=== PATIENT | female | born 1960 | race Caucasian/White ===

== ENCOUNTER → 2018-06-13 | Outpatient (CLI) | payer OTHER | LOC: M.RAD 07:20 | DX: Z12.31 Encounter for screening mammogram for malignant neoplasm of breast (principal) ==

== ENCOUNTER → 2018-06-17 | Outpatient (CLI) | payer OTHER | LOC: M.ULTRA 13:37 | DX: N63.21 Unspecified lump in the left breast, upper outer quadrant (principal) ==

== ENCOUNTER → 2018-12-16 | Outpatient (CLI) | payer OTHER | LOC: M.RAD 11-29 10:22 | DX: N60.02 Solitary cyst of left breast (principal) ==

== ENCOUNTER → 2019-04-04 | Outpatient (CLI) | payer OTHER | LOC: M.ULTRA 15:39 | DX: N85.00 Endometrial hyperplasia, unspecified (principal); R31.1 Benign essential microscopic hematuria; R93.89 Abnormal findings on diagnostic imaging of other specified body structures ==

== ENCOUNTER → 2019-06-26 | Outpatient (CLI) | payer OTHER | LOC: M.RAD 10:23 | DX: Z12.31 Encounter for screening mammogram for malignant neoplasm of breast (principal) ==

== ENCOUNTER → 2020-06-17 | Outpatient (CLI) | payer BC | LOC: M.RAD 11:17 | DX: Z12.31 Encounter for screening mammogram for malignant neoplasm of breast (principal) ==

== ENCOUNTER → 2021-06-16 | Outpatient (CLI) | payer BC | LOC: M.RAD 10:27 | PROVIDERS: ATTEND Family Medicine | DX: Z12.31 Encounter for screening mammogram for malignant neoplasm of breast (principal) ==